=== PATIENT | female | born 1975 | race Caucasian/White ===

== ENCOUNTER 2017-06-09 11:08 | Emergency (ER) | payer MEDICAID, OTHER ==
[~2017-06-09] VITALS: Ht 152.4 cm; Wt 68.0 kg
[~2017-06-09 11:08] MED LIST: UNKNOWN PSYCH MED
[2017-06-09] MEDS ORDERED: BACITRACIN ZINC OINT UDPKT TOP ONE (13:00)
[2017-06-09] MEDS ORDERED: HYDROCODONE/ACETAMINOPHEN 5/325MG TABLET PO ONE (13:00)
[2017-06-09 15:21] VITALS: BP 115/79
== END 2017-06-09 15:22 | disposition home or self-care (01) ==
LOC: ER 12:19
DX: L03.317 Cellulitis of buttock (principal); L02.31 Cutaneous abscess of buttock; R03.0 Elevated blood-pressure reading, without diagnosis of hypertension
CPT/HCPCS: 76857; 76881; 99284